=== PATIENT | male | born 1965 | race Caucasian/White ===

== ENCOUNTER 2025-02-07 14:11 | Emergency (ER) | payer BC, SELFPAY ==
--- OUTSIDE RECORDS SUMMARY | 2025-02-07 14:14 | XMS_ITS | Encounter Summary ---
Author Organization [place] Address [address] [place] [address] Care Team Providers Care Nursing Clinical Director Name Role Phone Jorge Salmeron MD Primary Care Provider Clemencia Melgoza MD Primary Care Provider [phone] Encounter Details Date Type Department Care Team ([facility] st Contact Info) Description 01/11/[address] [address] Jorge Salmeron MD [address] [address] ER ENC REPT (Primary Dx) Social History Tobacco Use Types Packs/Day Years Used Date Smoking Tobacco: Never Alcohol Use Standard Drinks/Week Comments Yes 0 (1 standard drink = 0.6 oz pur e alcohol) wine 1-2 glasses a week Sex and Gender Information Value Date Recorded Sex Assigned at Not on file 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 HISTORY OF PRESENT ILLNESS: Alisson Rios is a 37-year-old male with history of hiatal hernia. He presents to the Emergency [facility] complaining of fever with associated chills since Wednesday night. The patient feels that it increases with taking a deep breath and describes it as bilaterally below the tips of both shoulder blades. The patient notes a nonproductive cough. He noted a fever to 104 today. He is not a smoker and denies any recent travel. The patient notes a stiff neck without significant headache. He also notes mild lower abdominal pain and diffuse muscle aching. The patient denies any focal sensory or m otor loss, IV drug use, or rash. PAST MEDICAL HISTORY: Hiatal hernia, irritable bowel syndrome. M EDICATIONS: DayQuil, dicyclomine. ALLERGIES: None. SOCIAL HISTORY: . Lives locally. R EVIEW OF SYSTEMS: See HPI; all other systems are negative. PHYSICAL EXAMINATION: VITAL SIGNS: Te mperature 102.3, pulse 129, respiratory rate 22, blood pressure 117/76. GENERAL: The patient is a we ll-developed, well-nourished male, awake and alert. SKIN: Warm and dry without rash. HEENT: Head - normocephalic and atraumatic. Eyes - pupils equal, round, and reactive to light. Fundoscopic exam r eveals no Saenz spots. Conjunctivae without petechiae. Extraocular motions intact. Ears - TMs are cl ear. Nose and throat - clear. NECK: Mild stiffness with extreme flexion or extension. NODES: No an terior or posterior cervical adenopathy. CHEST: Clear to auscultation without rub. No dullness to p ercussion. CV: S1, S2. BACK: Nontender to palpation of thoracic or lumbar posterior spinous process es. ABDOMEN: Positive bowel sounds, soft, nontender. EXTREMITIES: Without clubbing, cyanosis or georgette ma. NEURO: Cranial nerves II-XII are intact. Deep tendon reflexes +2. Motor and sensory grossly int act upper and lower extremities bilaterally. EMERGENCY DEPARTMENT COURSE: White blood cell count 1 2,200, PMN 87%, lymphocytes 6%. Hemoglobin 16.3, hematocrit 45.2. Urinalysis unremarkable. Blood c ultures times 2 were obtained. The patient received Tylenol 975 mg for defervescence. Chest x-ray A P and lateral views demonstrated no evidence of infiltrate. As the patient later localized the pain to the T10 area of his spine, I felt it necessary to obtain an MRI to rule out any infectious process such as diskitis or epidural abscess. This was obtained and interpreted by [facility] as no rmal. The patient received Zithromax 500 mg IV push and Rocephin 1 gram IV piggyback for presumed cl inical pneumonia. IMPRESSION: 1. Fever secondary to clinical pneumonia. 2. Back pain. No evidence o f diskitis or epidural abscess. PLAN: 1. Zithromax 250 mg dispense #6. 2. Ibuprofen 800 mg t.i.d. wi meals. 3. Vicodin dispense #12. 4. Follow up in one to two days with PMD if no improvement. Retur n to the Emergency Department for any new symptoms. PRINCESS DE GUZMAN MD T: 0 01/13/2003 08:07 MT: minda Document: [id number] [place], [place] Name: GABRIELALISSON EMERGENCY ROOM ENCOUNTER Page 2 of 2 LCN: ER DSC: 01/11/2003 [place], [place] Name: ALISSON RIOS MR#: : Admit Date: -12 7 01/11/2003 Doctor: PRINCESS DE GUZMAN MD EMERGENCY ROOM ENCOUNTER Page 1 of 2 Electronically filed by Dashawn Mendoza 01/17/2003 5:09 PM documented in this encounter Plan of Treatment Not on file documented as of this encounter Visit Diagnoses Diagnosis ER ENC REPT- Primary documented in this encounter Care Teams Nursing Clinical Director Relationship Specialty Start Date End Date Jorge Salmeron MD [address] [address] PCP - General 07/15/01 02/15/21 Clemencia Melgoza MD [address] [place] [address] PCP - General Family Medicine 02/16/21 documented as of this encounter
--- OUTSIDE RECORDS SUMMARY | 2025-02-07 14:14 | XMS_ITS | Clinical Summary ---
Author Organization [place] Address [address] [place] [address] Care Team Providers Care Jewish History Professor Name Role Phone Clemencia Melgoza MD Primary Care Provider [phone] Allergies Active Allergy Reactions Criticality Noted Date Comments Azithromycin Other (See Comments) 07/06/2014 Burning sensation Erythromycin 10/17/2002 vomiting, abd pain Povidone Iodine Rash Low 04/17/2011 Medications ABILIFY 5 MG OR TABSIndications:B ipolar disorder, unspecified (H) 1 tablet daily for 1 week, then 2 TABLETS DAILY 60 0 6 Active DICYCLOMINE HCL 10 MG OR CAPSIndications:I rritable bowel syndrome 1 CAPSULE 3 TIMES DAILY as needed for intestinal spasms 90 0 7 Active apixaban ANTICOAGULANT (ELIQUIS) 5 MG tabletIndications :Afib-non valvular Take 1 tablet (5 mg) by mouth 2 times daily 60 tablet 1 Active diltiazem ER COATED BEADS (CARDIAZEM LA) 120 MG 24 hr tabletIndications :Atrial fibrillation with RVR (H) Take 1 tablet (120 mg) by mouth daily 30 tablet 1 Active Active Problems Problem Noted Date Diagnosed Date Atrial fibrillation with RVR 02/16/2021 Irritable bowel syndrome 08/04/2006 Allergic rhinitis 10/17/2002 Overview (02/28/2015): Problem list name updated by automated process. Provider to review Diaphragmatic hernia 10/17/2002 Overview (02/28/2015): Problem list name updated by automated process. Provider to review Other bipolar disorder Overview (04/01/2015): see psychiatiry note 04/30/06 Diagnosis updated by automated process. Provider to review and confirm. Family History Medical History Relation Comments Family History Negative Brother b:1970 n ot in contact with Cardiovascular Father b:1945 hx CABG a nd stent placement x4 all since 2001 Gastrointestinal Disease Maternal Grandfather hx of colon problems Diabetes Maternal Uncle one with DM and colon problems Gastrointestinal Disease Mother b:1946 hx spastic colon Respiratory Mother emphysema, had b een a smoker Cardiovascular Paternal Grandfather of mas sive coronary Relation Status Comments Brother Father Maternal Grandfather Maternal Uncle Mother Paternal Grandfather Social History Tobacco Use Types Packs/Day Years Used Date Smoking Tobacco: Never Alcohol Use Standard Drinks/Week Comments Yes 0 (1 standard drink = 0.6 oz pur e alcohol) wine 1-2 glasses a week Adolescent Education Answer Date Record ed Getting School Help Needed Not on file 03/06 Sex and Gender Information Value Date Recorded Sex Assigned at Not on file 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 Gender Identity Not on file Sexual Orientation Not on file 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 Not on file Not on file No t on file Last Filed Vital Signs Vital Sign Reading Time Taken Comments Blood Pressure 147/97 02/17/2021 3:11 PM CDT Pulse 103 02/17/2021 3:11 PM CDT Temperature 37.2 C (98.9 F) 02/17/2021 3:11 PM CDT Respiratory Rate 16 02/17/2021 3:11 PM CDT Oxygen Saturation 95% 02/17/2021 3:11 PM CDT Inhaled Oxygen Concentration - - Weight 204.9 kg (451 lb 11.6 oz) 02/17/2021 8:40 AM CDT Height 177.8 cm (5' 10) 02/16/2021 1:00 PM CDT Body Mass Index 64.82 02/16/2021 1:00 PM CDT Plan of Treatment Not on file Insurance [address] [place] [phone] [employer] Advance Directives For more information, please contact: [phone] * Full Code (Latest Code Status on File) Date Activated Date Inactivated Comments 02/17/2021 1:15 PM Question Answer Comments Code status determined by: Discussion with jayy nt/ legal decision maker * Full Code Date Activated Date Inactivated Comments 02/16/2021 1:25 PM 02/17/2021 1:15 PM All basic an d advanced life-sustaining interventions are performed as appropriate Question Answer Comments Code status determined by: Discussion with jayy nt/ legal decision maker Care Teams Jewish History Professor Relationship Specialty Start Date End Date Clemencia Melgoza MD [address] [place] [address] PCP - General Family Medicine 02/16/21
--- OUTSIDE RECORDS SUMMARY | 2025-02-07 14:14 | XMS_ITS | Clinical Summary ---
Author Organization [facility] Address [address] [place] [address] Care Team Providers Care Assurance Sourcing Manager Name Role Phone JazieltClemencia Primary Care Provider Allergies Active Allergy Reactions Criticality Noted Date Comments Azithromycin Other - Describe In Comment Field 07/06/2014 Burning sensation Povidone-Iodine Rash 04/17/2011 Sesame Oil Hives 07/09/2023 Medications omeprazole (PRILOSEC) 20 mg capsule TAKE 1 CAPSULE BY MOUTH ONCE DAILY BEFORE A MEAL. 90 capsule 3 2 Active polyethylene glycol-electroly te 236-22.74-6.74 -5.86 gram suspensionIndica tions:Encounter for screening colonoscopy Drink 2 liters (half the bottle) the day before the procedure and 2 liters (half the bottle) 6 hours prior to procedure. 4000 mL Active Active Problems Problem Noted Date Diagnosed Date Adenomatous colon polyp 07/10/2014 Overview (12/27/2024): Colonoscopy 07/2014 polyp repeat in 5 years Colonoscopy 11/2024 polyp, repeat in 7-10 years Abdominal pain 03/29/2014 Counseling for travel 04/17/2011 Encounters Date Type Department Care Team Description 12/27/2024 6:14 AM CDT - 12/27/2024 11:59 PM CDT Hospital Encounter Robb Lainez MD 12/27/[address] [address] Robb Lainez MD Colonoscopy 12/27/2024 Orders Only [facility] [address] [place] [address] Robb Lainez MD <No scans attached> 12/20/2024 Telephone [facility] [address] [place] [address] Robb Lainez MD Appointment Reminder (Colonoscopy at [facility] 12/27/24) 11/15/2024 Telephone [facility] [address] [place] [address] Robb Lainez MD Need Meds 11/10/2024 4:20 PM CDT Office Visit [facility] [address] [place] [address] Clemencia Melgoza, Follow Up (Follow up from 03/22/2024 visit) 11/10/2024 Travel from Last 3 Months Immunizations Immunization Administration Dates Next Due AMB Influenza, IIV3 (Age >=3 years)(Flu Clinic Only) 04/04/2011 AMB Influenza, IIV4 PF (=>6 mos Flulaval,Fluzone Fluarix)(Flu Clinic Only) 03/22/2015 HepA-HepB (Twinrix) 02/12/2012,05/22/2011,2010 Influenza, IIV3 (Age 6-35 mos) 04/04/2011 Influenza, IIV3 (Age >=3 years) 02/12/2012,02/11 Influenza, IIV4 04/17/2022,02/15/2021,03/28/2014 Influenza, IIV4 (=>6mos) MDV 04/04/2018 Lyme Disease Vaccine 12/20/2000,11/22/2000 Td, Preservative Free (age >= 7 Years) 3 Tdap 11/21/2010 Typhoid (injectable) 07/26/2015 Family History Medical History Relation Name Comments Diabetes Father Heart Disease Father Hypertension Father Other Father kidney stones Cancer-colon Maternal Aunt Cancer-colon Maternal Grandfather Other Maternal Uncle colectomy for unknown reasons. possible cancer. Heart Disease Paternal Grandfather Relation Name Status Comments Father Maternal Aunt Maternal Grandfather Maternal Uncle Paternal Grandfather Social History Tobacco Use Types Packs/Day Years Used Date Smoking Tobacco: Never Smokeless Tobacco: Never Tobacco Cessation:Counseling Given: Yes Alcohol Use Standard Drinks/Week Comments Not Currently 0 (1 standard drink = 0.6 oz pur e alcohol) Social Connections Answer Date Recorded Do you often feel lonely or isolated from those around you? 0 03/22/2024 Financial Resource Strain Answer Date R ecorded Difficulty of Paying Living Expenses 3 03/22/2024 Difficulty of Paying Living Expenses Not on file 03/22/2024 Food Insecurity Answer Date Recorded Do you worry your food will run out before you are able to buy more? 1 03/22/2024 Transportation Needs Answer Date Record ed Does lack of transportation keep you from medica l appointments? 1 03/22/2024 Does lack of transportation keep you from work, meetings or getting things that you need? 1 03/22/2024 Housing Stability Answer Date Recorded What is your housing situation today? 1 03/22/2024 Utilities Answer Date Recorded Do you have trouble paying f or utilities (for example, heat, electricity, water, phone)? 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 Gender Identity Not on file Sexual Orientation Not on file Obstetrics History Last Filed Vital Signs Vital Sign Reading Time Taken Comments Blood Pressure 132/90 11/10/2024 4:33 PM CDT Pulse 79 11/10/2024 4:33 PM CDT Temperature 36.5 C (97.7 F) 03/22/2024 9:49 AM CDT Respiratory Rate - - Oxygen Saturation 99% 11/10/2024 4:33 PM CDT Inhaled Oxygen Concentration - - Weight 92.5 kg (204 lb) 11/10/2024 4:33 PM CDT Height 177.8 cm (5' 10) 07/09/2023 1:37 PM FASHION PATTERNMAKER Body Mass Index 29.27 07/09/2023 1:37 PM FASHION PATTERNMAKER Plan of Treatment Health Maintenance Due Date Last Done Comments Depression screening for age 12+ 1978 HIV for age 15-65 1981 Hepatitis C screening for ag e 18-79 1984 Lipids for age 45-75 11/29/2015 11/28/2010 Pneumococcal series for age 50+ (1 of 1 - PCV) 2016 Zoster (shingles) series for age 50+ (1 of 2) 2016 BMI (ht and wt on same day) for age 18+ 07/09/2024 07/09/2023, 05/10/2018, 12/18/2016, Additional history exists COVID-19 vaccine series ( season) 2025 01/01/2022, 04/20/2021, 09/26/2020, Additional history exists Influenza Vaccine (#1) 2025 , 02/15/2021, 04/04/2018, Additional history exists Colonoscopy through age 75 12/28/2031 12/27/2024 Tetanus booster 06/05/2032 06/05/2022, 10/30, 11/21/2010 RSV vaccine for adults or (1 - 1-dose 75+ series) 2041 Hepatitis B series for 19+ Completed 02/11, 05/22/2011, 04/17/2011 Procedures Procedure Name Priority Date/Time Associated Diagnosis Comments LIPID PANEL W REFLEX MEASURED LDL Routine 11/28/2010 8:41 AM CDT Screening cholesterol level SURGICAL PROCEDURE (TYPE PROCEDURE DESCRIPTION BELOW) Encounter for screening colonoscopy from Last 3 Months or Most Recently Relevant to Health Maintenance Results * (ABNORMAL) LIPID PANEL W REFLEX MEASURED LDL (11/28/2010 8:41 AM CDT) CHOLESTEROL,TOTAL 166 110 - 199 mg/dL [facility] TRIGLYCERIDES 143 <150 mg/dL [facility] HDL CHOLESTEROL 40(L) >40 mg/dL [facility] CHOL/HDL RATIO 4.15 <4.51 [facility] LDL CHOLESTEROL 97 <131 mg/dL [facility] PATIENT STATUS Fasting [facility] Blood specimen (specimen) BLOOD SPECIMEN / Unknown 11/28/2010 8:41 AM CDT 11/28/2010 8:36 AM CDT us Clemencia Melgoza DO CHEMISTRY Final Resul t [facility] [address] [place] [address] from Last 3 Months or Most Recently Relevant to Health Maintenance Insurance [facility] NON-PR-ITS Care Teams Assurance Sourcing Manager Relationship Specialty Start Date End Date Clemencia Melgoza DO [address] [place] [address] PCP - General Family Practice 11/21/10
[2025-02-07 14:20] VITALS: BP 171/100; PULSE 88; RESP 28; TEMP 36.9; O2SAT 98; BMI 28.7
--- NOTE | 2025-02-07 14:54 | ED.GENADULT ---
HPI - General Adult General Chief complaint: Laceration/Wound Stated complaint: missing part of thumb Time Seen by Provider: 02/07/25 14:37 History of Present Illness HPI narrative: Patient is a 51-year-old male update on tetanus super avulsed the medial distal skin and finger on the medial aspect of the distal thumb phalanx. No deep wounds involved appears to be moving the hand fully good bleeding noted. He is up-to-date on tetanus as mention. Related Data Home Medications ?Medication ?Instructions ?Recorded ?Confirmed omeprazole magnesium [Prilosec OTC] PO 10/25/22 10/25/22 Previous Rx's ?Medication ?Instructions ?Recorded lidocaine HCl 2 % mucosal solution 1 applic mucous membrane TID PRN 10/25/22 (Lidocaine Viscous) sore throat #100 mL Allergies Allergy/AdvReac Type Severity Reaction Status Date / Time azithromycin (From Zithromax) Allergy Verified 10/25/22 11:52 povidone-iodine (From Allergy Verified 02/07/25 14:20 Betadine) Review of Systems Status of ROS: Reports: 6 or more systems reviewed and unremarkable except as noted in History and below [facility] Medical History Strep throat ?J02.0 - Streptococcal pharyngitis (ICD-10) Sore throat ?J02.9 - Acute pharyngitis, unspecified (ICD-10) Social History Smoking Status: Never smoker Exam Narrative: Exam Narrative: Objective: In general patient apparent distress he avulsed the medial aspect of his thumb distal phalanx basically soft tissue skin avulsion. Does not appear markedly deep does not appear down to bone. He has got normal neurovascular function and tendon function. Const: Vital Signs, click to edit/add: Vital Signs - 24 hr 02/07/25 14:20 Temperature 98.5 F Pulse Rate [Pulse Oximeter] 88 Respiratory Rate 28 H Blood Pressure [Ri ght Upper Arm] 171/100 H Pulse Oximetry 98 Oxygen Delivery Me thod Room Air Course Vital Signs Vital signs: Initial Vital Signs Temperature 98.5 F 02/07/25 14:20 Temperature Source Temporal Artery Scan 02/07/25 14:20 Pulse Rate 88 02/07/25 14:20 Respiratory Rate 28 H 02/07/25 14:20 Blood Pressure 171/100 H 02/07/25 14:20 Blood Pressure Mean 123 H 02/07/25 14:20 Pulse Oximetry 98 02/07/25 14:20 Oxygen Delivery Method Room Air 02/07/25 14:20 Vital Signs Temperature 98.5 F 02/07/25 14:20 Pulse Rate 88 02/07/25 14:20 Respiratory Rate 28 H 02/07/25 14:20 Blood Pressure 171/100 H 02/07/25 14:20 Pulse Oximetry 98 02/07/25 14:20 Oxygen Delivery Method Room Air 02/07/25 14:20 Temperature 98.5 F 02/07/25 14:20 Pulse Rate 88 02/07/25 14:20 Respiratory Rate 28 H 02/07/25 14:20 Blood Pressure 171/100 H 02/07/25 14:20 Pulse Oximetry 98 02/07/25 14:20 Oxygen Delivery Method Room Air 02/07/25 14:20 Medications Administered Medications: Discontinued Medications Generic Name Dose Route Start Last Admin Trade Name Freq PRN Reason Stop Dose Admin Diphtheria/Tetanus/Acell Pertussis 0.5 ml 02/07/25 15:00 02/07/25 15:17 Tetanus/Diphth/Pertussis 0.5 Ml Syringe IM 02/07/25 15:01 Not Given .ONCE ONE Medical Decision Making MDM Narrative Medical decision making narrative: [age] year white male with a skin avulsion of the thumb on the right hand. Distal. It was covered with Shur-Clens and irrigated, then it was covered with a sure foam gauze x3 and dressing was placed and then a finger cot dressing will be placed over the top of that. Good hemostasis noted no bleeding through the wound. Patient is not on blood thinners. Would recommend keep this on for about 3 days and then he can soak off the bandage and cover with a Band-Aid. He is up-to-date on tetanus I do not think antibiotics are necessary at this time. Recheck as needed. Light use for the next week Patient recalls having a tetanus shot in 2022 but there is only a record of him in this state form in 2010. Will offer him a tetanus shot if he wishes if he is convinced he had it 2 years ago then he can defer on this Discharge Plan Discharge Clinical Impression: Avulsion of skin of finger Patient Disposition: Home w/ Parent or Adult Condition: Improved Additional Instructions: Keep covered in the dressing for the next 2-3 days, then may soak off the dressing, and cover with bacitracin and a bandage, recheck with primary care as needed, return to ED sooner problems or concerns. Activity Detail: Light use of the right hand for the next week Discharge Diet: Regular Prescriptions: No Action omeprazole magnesium [Prilosec OTC] PO lidocaine HCl [Lidocaine Viscous] 2 % solution 1 applic mucous membrane TID PRN (Reason: sore throat) Qty: 100 0RF Follow Up/Referrals: Provider,Not a Local [Primary Care Provider, Family Practice] Stand Alone Forms: [facility] Info Instructions
== END 2025-02-07 15:28 | disposition home or self-care (01) ==
LOC: ED 15:25
PROVIDERS: Emergency Provider Family Medicine
DX: S61.001A Unspecified open wound of right thumb without damage to nail, initial encounter (principal); X58.XXXA Exposure to other specified factors, initial encounter
CPT/HCPCS: 99282; 99283; 99284